=== PATIENT | female | born 1940 | race Caucasian/White ===

== ENCOUNTER 2016-09-08 11:17 | Emergency (ER) | payer MEDICARE, OTHER ==
[2016-09-08] MEDS ORDERED: Aspirin Low Dose CHEW TAB* 81 MG PO ONE (11:27)
--- NOTE | 2016-09-08 11:58 | RAD ---
INDICATION: Chest pain. COMPARISON: Comparison is made with a prior chest x-ray study from September 27, 2004. TECHNIQUE: A portable view of the chest was obtained. FINDINGS: Cardiac and mediastinal contours appear to be within normal limits. The lungs are underinflated and clear. No pleural effusion is seen. IMPRESSION: NO EVIDENCE FOR ACUTE DISEASE.
[2016-09-08 12:28] LABS: Hematocrit 42 % (35-47); Hemoglobin 13.7 g/dl (12.0-16.0); Mean Corpuscular HGB Conc 33 g/dl (31-36); Mean Corpuscular Hemoglobin 29 pg (27-31); Mean Corpuscular Volume 88 fL (80-97); Mean Platelet Volume 10 um3 (7.4-10.4); Red Blood Count 4.74 10^6/ul (4.0-5.4); Red Cell Distribution Width 15 % (10.5-15); White Blood Count 6.9 10^3/ul (3.5-10.8)
[2016-09-08] MEDS ORDERED: Nitroglycerin TAB 0.4 MG* 0.4 MG TAB SL ONE (12:33)
[2016-09-08 12:40] LABS: Albumin 3.8 g/dL (3.2-5.2); EGFR Non-African American 83.2 (>60); Globulin 2.8 g/dL (2-4); Potassium 4.4 mmol/L (3.5-5.0); Total Bilirubin 0.4 mg/dL (0.2-1.0); Total Protein 6.6 g/dL (6.4-8.9)
[2016-09-08] MEDS ORDERED: Iohexol 350* (CONTRAST) 500 ML MDV IV ONE (12:59)
--- NOTE | 2016-09-08 14:09 | RAD ---
INDICATION: Chest and back pain evaluate for aortic dissection. COMPARISON: Comparison is made with a prior CT of the abdomen and pelvis from January 05, 2008 and a prior chest x-ray study from September 08, 2016. TECHNIQUE: A CT angiogram of the chest, abdomen and pelvis was performed with intravenous contrast following intravenous injection of 100 ml of Omnipaque 350 nonionic contrast. Contiguous axial sections were obtained from the lung apices through the symphysis pubis. Images were reconstructed in the coronal and sagittal planes and in a 3-D volume rendered reformatted. FINDINGS: CT ANGIOGRAM OF THE CHEST: There is relatively homogeneous opacification of the pulmonary arteries. No intraluminal filling defect or pulmonary embolism is seen. The heart is within normal limits in size. No pericardial effusion is present. The thoracic aorta is normal in caliber and demonstrates homogeneous contrast opacification without evidence for dissection. There are mildly prominent pretracheal and precarinal lymph nodes measuring up to 1 cm in transverse dimension. There is also a slightly enlarged right hilar lymph node measuring 1.2 cm in transverse dimension. The lungs are clear. No pleural effusion is seen. CT ANGIOGRAM OF THE ABDOMEN AND PELVIS: The abdominal aorta is normal in caliber without hemodynamically significant stenosis. There is moderate calcific plaque at the origin of the celiac artery without evidence for hemodynamically significant stenosis. The superior mesenteric and inferior mesenteric arteries appear widely patent. There are single bilateral renal arteries. The right renal artery appears widely patent. There is moderate calcific plaque at the origin of the left renal artery without evidence for hemodynamically significant stenosis. The liver and spleen are normal in size without significant focal abnormality. There is thickening of the gallbladder wall. No calcified gallstones are seen. The pancreas appears to be within normal limits in size. The kidneys and adrenal glands are normal in size. No hydronephrosis is seen. No significant focal renal abnormality is seen. No significant enlarged retroperitoneal lymph nodes are seen. 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 The stomach, small and large bowel appear nondistended. The appendix appears to be within normal limits. There is no evidence for diverticulitis or colitis. There is moderate to severe sigmoid diverticulosis. There is a small umbilical hernia containing fat. The patient is status post hysterectomy. No free intraperitoneal air or fluid is seen. There is grade 1 anterior spondylolisthesis at the L4-L5 level. No significant focal osseous abnormality is seen. IMPRESSION: 1. NO EVIDENCE FOR AORTIC DISSECTION OR PULMONARY EMBOLISM. 2. GALLBLADDER WALL THICKENING. RECOMMEND FURTHER EVALUATION WITH A RIGHT UPPER QUADRANT ULTRASOUND. 3. MILDLY PROMINENT MEDIASTINAL AND RIGHT HILAR LYMPH NODES.
[2016-09-08 15:39] LABS: Urine Bacteria Absent (Absent); Urine Bilirubin Negative (Negative); Urine Glucose Negative (Negative); Urine Nitrite Negative (Negative)
--- NOTE | 2016-09-08 15:57 | RAD ---
INDICATION: Abnormal CT findings. COMPARISON: Comparison is made with a prior CT angiogram of the chest, abdomen and pelvis of the same day. TECHNIQUE: Multiple real-time images of the right upper quadrant were obtained. FINDINGS: The gallbladder is contracted. There are multiple gallstones present. The gallbladder wall is mildly thickened likely due to the due to the contracted state. No pericholecystic fluid or positive sonographic Monahan sign is present. No intra or extrahepatic ductal distention is present. The common bile duct measured 4.4 cm in diameter. The liver is normal in size and increased in echogenicity most consistent with fatty infiltration. No significant focal abnormality is seen. The pancreas is obscured by overlying bowel gas. The right kidney is normal in size without evidence for hydronephrosis. IMPRESSION: CHOLELITHIASIS WITHOUT EVIDENCE FOR ACUTE CHOLECYSTITIS.
[2016-09-08 16:43] VITALS: BP 142/55
--- NOTE | 2016-09-08 17:08 | PN ---
Progress Note - Progress Note Note: discussed possible admission of pt with Dr. Charlton at approx 16:30. Pt has had 2 troponins that are negative and no dynamic changes on EKG. She is CP free. Unfortunately there is no stress test availability at [facility] during the weekend. Dr. Charlton will check 3rd troponin before the decision to admit this pt is made.
--- NOTE | 2016-09-09 14:31 | ED ---
Neptali Mariee SooYoung, scribed for Cruz Charlton MD on 09/08/16 at 1222 . HPI Chest Pain - HPI Summary HPI Summary: A 76 y/o F presents to ED with c/o acute CP radiating to back shoulders onset this AM after breakfast. Pain is described as dull and achy. Associated sx: malaise. Denies dyspnea. She does experience SOB with exertion. Pt has a baseline unproductive cough that she's had for years. She says she feels a bit better currently. Pert PMHx: asthma, uses an inhaler, takes Singular. PCP is Dr. Saeed. - History of Current Complaint Chief Complaint: EDChestWallPain Time Seen by Provider: 09/08/16 11:26 Hx Obtained From: Patient, Family/Outpatient Dietitian Onset/Duration: Started Hours Ago, Still Present - mildly Timing: Constant Initial Severity: Moderate Current Severity: Mild Pain Intensity: 3 Pain Scale Used: 0-10 Numeric Chest Pain Location: Mid Sternal Chest Pain Radiates: Yes Chest Pain Radiates To:: Shoulder - top of shoulder Character: Dull/Aching - Allergy/Home Medications Allergies/Adverse Reactions: Allergies Allergy/AdvReac Type Severity Reaction Status Date / Time Codeine Allergy Mild N/V Verified 08/06/13 19:27 PMH/Surg Hx/FS Hx/Imm Hx Previously Healthy: No Endocrine/Hematology History: Denies: Hx Diabetes Respiratory History: Reports: Hx Asthma - Surgical History Surgery Procedure, Year, and Place: HYSTERECTOMY Infectious Disease History: No Infectious Disease History: Denies: Traveled Outside the [place] in Last 30 Days - Family History Known Family History: Negative: Cardiac Disease - Social History Occupation: Employed Full-time Lives: With Family Alcohol Use: Weekly Hx Substance Use: No Substance Use Type: Reports: None Hx Tobacco Use: No Smoking Status (MU): Never Smoked Tobacco Have You Smoked in the Last Year: No Review of Systems Negative: Fever, Chills Negative: Erythema Negative: Sore Throat Positive: Chest Pain Negative: Shortness Of Breath, Cough Negative: Abdominal Pain, Vomiting, Nausea Negative: dysuria, hematuria Negative: Myalgia, Edema Negative: Rash Neurological: Other - neg: dizziness; pos: general malaise All Other Systems Reviewed And Are Negative: Yes Physical Exam - Summary Physical Exam Summary: Constitutional: Well-developed, Well-nourished, Alert. (-) Distressed Skin: Warm, Dry HENT: Normocephalic; Atraumatic Eyes: Conjunctiva normal Neck: Musculoskeletal ROM normal neck. (-) JVD, (-) Stridor, (-) Tracheal deviation Cardio: Rhythm regular, rate normal, Heart sounds normal; Intact distal pulses; The pedal pulses are 2+ and symmetric. Radial pulses are 2+ and symmetric. (-) Murmur Pulmonary/Chest wall: Effort normal. (-) Respiratory distress, (-) Wheezes, (-) Rales Abd: Soft, (-) Tenderness, (-) Distension, (-) Guarding, (-) Rebound Musculoskeletal: (-) Edema Lymph: (-) Cervical adenopathy Neuro: Alert, Oriented x3 Psych: Mood and affect Normal Triage Information Reviewed: Yes Vital Signs On Initial Exam: Initial Vitals Temp Pulse Resp BP Pulse Ox 98.6 F 62 18 155/78 98 09/08/16 11:18 09/08/16 11:18 09/08/16 11:18 09/08/16 11:18 09/08/16 11:18 Vital Signs Reviewed: Yes Diagnostics - Vital Signs Vital Signs Temp Pulse Resp BP Pulse Ox 09/08/16 11:38 62 96 09/08/16 11:36 110/86 09/08/16 11:35 98.4 F 59 16 110/86 98 09/08/16 11:18 98.6 F 62 18 155/78 98 - Laboratory Result Diagrams: 09/08/16 12:15 09/08/16 12:15 Lab Statement: Any lab studies that have been ordered have been reviewed, and results considered in the medical decision making process. - Radiology CXR Xray Interpretation: No Acute Changes - IMPRESSION: No evidence for acute findings. Radiology Interpretation Completed By: Radiologist - CT C/A/P CT CT Interpretation: Positive (See Comments) - IMPRESSION: 1. NO EVIDENCE FOR AORTIC DISSECTION OR PULMONARY EMBOLISM. 2. GALLBLADDER WALL THICKENING. RECOMMEND FURTHER EVALUATION WITH A RIGHT UPPER QUADRANT ULTRASOUND. 3. MILDLY PROMINENT MEDIASTINAL AND RIGHT HILAR LYMPH NODES. CT Interpretation Completed By: Radiologist - Ultrasound No standard instances Ultrasound Interpretation: Positive (See Comments) - IMPRESSION: CHOLELITHIASIS WITHOUT EVIDENCE FOR ACUTE CHOLECYSTITIS. Ultrasound Interpretation Completed By: Radiologist - EKG 1 EKG Interpretation: no STEMI 2 Cardiac Rate: Bradycardia - 56 BPM EKG Rhythm: Sinus Bradycardia EKG Interpretation: NO STEMI Re-Evaluation - Re-Evaluation 1 Re-Evaluation Time: 16:12 Change: Improved Comment: Discussing results with pt, plan of action. CP relieved with nitro. 2 Re-Evaluation Time: 16:59 Change: Improved Comment: Discussing plan of action with pt and family. Currently pain free. Will get third trop, EKG. Chest Pain Course/Dx - Course Course Of Treatment: Pt is an active 76 y/o F presenting with acute CP radiating to back shoulders onset this AM after breakfast. Pain is described as dull and achy. Associated sx: malaise. Denies dyspnea. Pert PMHx: asthma, uses an inhaler, takes Singular. PCP is Dr. Saeed. Pt given fluids, nitro and aspirin in ED. CXR was negative. 1st trop was neg. 2nd Trop was 0.01. C/A/P CTA shows "1. NO EVIDENCE FOR AORTIC DISSECTION OR PULMONARY EMBOLISM. 2. GALLBLADDER WALL THICKENING. RECOMMEND FURTHER EVALUATION WITH A RUQ ULTRASOUND. 3. MILDLY PROMINENT MEDIASTINAL AND RIGHT HILAR LYMPH NODES." Gallbladder U/S shows "CHOLELITHIASIS WITHOUT EVIDENCE FOR ACUTE CHOLECYSTITIS. ". Multiple consults with hospitalists, discussed admission. EKG unremarkable, trop negative, pt is currently pain free. Pain possibly due to gallstones. Stress test unavailable on weekends. Will get third trop now. 3rd trop is negative. Pt is CP free. Will D/C home, f/u with PCP and Dr. Lopez, cardio, on Saturday. Told to return to ED if sx worsen or she has concerns. Pt voiced understanding. - Diagnoses Provider Diagnoses: Chest pain, unspecified, Gallstones - Provider Notifications Discussed Care Of Patient With: 161: Dr. Sams, hospitalist: will observe/ admit. 1655: Dr Sams: discussed admission. EKG unremarkable, trop negative, pt is currently pain free. Pain possibly due to gallstones. Stress test unavailable on weekends. Will get third trop now. Time Discussed With Above Provider: 16:18 Instructed by Provider To: Admit As Inpatient Discharge - Discharge Plan Condition: Stable Disposition: HOME The documentation as recorded by the Neptali ramírez SooYoung accurately reflects the service I personally performed and the decisions made by me, Cruz Charlton MD.
== END 2016-09-08 18:49 | disposition home or self-care (01) ==
LOC: ED 11:17 → MEDTELE 16:22 → UNDOADMOB 16:22
DX: R07.9 Chest pain, unspecified (principal); M54.9 Dorsalgia, unspecified; K80.80 Other cholelithiasis without obstruction
CPT/HCPCS: 36415; 71010; 71275; 74174; 76705; 80053; 81003; 81015; 83605; 84484; 85025; 87086; 93005; 99283; A9270-GY; Q9967

== ENCOUNTER 2017-08-16 20:58 | Emergency (ER) | payer MEDICARE, OTHER ==
[2017-08-16] MEDS ORDERED: Ketorolac INJ* 30 MG/ML 1 ML VIAL IM ONE (22:35)
[2017-08-16 23:27] VITALS: BP 155/77
--- NOTE | 2017-08-17 08:27 | RAD ---
Indication: Anterior leg pain. 2 views of the lower leg demonstrates no definite fracture. There is cortical thickening of the fibula. No fracture is identified. IMPRESSION: Cortical thickening of the fibula without definite fracture.
--- NOTE | 2017-08-17 20:28 | ED ---
Alonzo Mariee Nilda, scribed for Jeremías Cohen MD on 08/16/17 at 2230 . Lower Extremity - HPI Summary HPI Summary: This patient is a 77 year old F presenting to [facility] with a chief complaint of intermittent sharp anterior right flores pain (lasting seconds) that began yesterday. The patient rates the pain 9/10 in severity. Symptoms aggravated by ambulation and alleviated by nothing including Aleve taken earlier this afternoon. Pt states she is able to bear weight. Patient reports RLE achiness. Patient denies injury and calf pain. Pt has had previous similar symptoms but tonight is different in that pain "wont go away." NKDA except codeine averse ( causes nausea). No PMHx DM and DVT. - History of Current Complaint Chief Complaint: EDExtremityLower Stated Complaint: RT FRONT LEG PAIN Time Seen by Provider: 08/16/17 22:15 Hx Obtained From: Patient Mechanism Of Injury: Unknown Onset of Pain: Days Onset/Duration: Days Severity Currently: Severe Pain Intensity: 9 Pain Scale Used: 0-10 Numeric Timing: Intermittent, Lasting Seconds Location: Is Discrete @ - right anterior flores Character Of Pain: Sharp Aggravating Factor(s): Ambulation Alleviating Factor(s): Nothing Able to Bear Weight: Yes - Allergies/Home Medications Allergies/Adverse Reactions: Allergies Allergy/AdvReac Type Severity Reaction Status Date / Time codeine Allergy Nausea And Verified 08/16/17 21:16 Vomiting PMH/Surg Hx/FS Hx/Imm Hx Endocrine/Hematology History: Denies: Hx Diabetes Cardiovascular History: Denies: Hx Deep Vein Thrombosis Respiratory History: Reports: Hx Asthma - Surgical History Surgery Procedure, Year, and Place: HYSTERECTOMY Infectious Disease History: No Infectious Disease History: Denies: Traveled Outside the [place] in Last 30 Days - Family History Known Family History: Negative: Cardiac Disease - Social History Alcohol Use: Weekly Hx Substance Use: No Substance Use Type: Reports: None Hx Tobacco Use: No Smoking Status (MU): Never Smoked Tobacco Have You Smoked in the Last Year: No Review of Systems Negative: Shortness Of Breath Positive: Other - right flores pain and RLE achiness; negative calf pain, injury All Other Systems Reviewed And Are Negative: Yes Physical Exam - Summary Physical Exam Summary: GENERAL: Patient is a well developed and nourished F who is lying comfortable in the stretcher. Patient is not in any acute respiratory distress. HEAD AND FACE: Normocephalic EYES: PERRLA, EOMI x 2. EARS: Hearing grossly intact. MOUTH: Oropharynx within normal limits. NECK: Supple, trachea is midline, no adenopathy, no JVD, no carotid bruit. CHEST: Symmetric, no tenderness at palpation LUNGS: Clear to auscultation bilaterally. No wheezing or crackles. CVS: Regular rate and rhythm, S1 and S2 present, no murmurs or gallops appreciated. ABDOMEN: Soft, non-tender. Bowel sounds are normal. No abdominal abnormal pulsations. EXTREMITIES: Full ROM in all major joints, no edema, no cyanosis or clubbing. Distal anterior right flores tender to palpation. No tenderness in calf area. NEURO: Alert and oriented x 3. No acute neurological deficits. Speech is normal and follows commands. SKIN: Dry and warm Triage Information Reviewed: Yes Vital Signs On Initial Exam: Initial Vitals Temp Pulse Resp BP Pulse Ox 98.5 F 70 18 141/78 97 08/16/17 21:13 08/16/17 21:13 08/16/17 21:13 08/16/17 21:13 08/16/17 21:13 Vital Signs Reviewed: Yes Diagnostics - Vital Signs Vital Signs Temp Pulse Resp BP Pulse Ox 08/16/17 21:13 98.5 F 70 18 141/78 97 - Laboratory Lab Statement: Any lab studies that have been ordered have been reviewed, and results considered in the medical decision making process. - Radiology Right Leg XR Radiology Interpretation Completed By: ED Physician - Flores XR reveals no fracture. Lower Extremity Course/Dx - Course Assessment/Plan: Pt is 77 y/o F who presents with pain to right anterior flores. No tenderness to palpation in calf area. XR was done which was unremarkable. Pt was given shot of Toradol and reports feeling a lot better. Results of XR discussed with pt. Pt safe for D/C with f/u with PCP and given strict return precautions. - Diagnoses Provider Diagnoses: Right leg pain Discharge - Sign-Out/Discharge Documenting (check all that apply): Discharge - home - Discharge Plan Condition: Stable Disposition: HOME Patient Education Materials: Leg Pain (ED) Referrals: Richard Saeed MD [Primary Care Provider] - 2 Days Additional Instructions: RETURN TO THE EMERGENCY DEPARTMENT FOR CHANGING OR WORSENING SYMPTOMS. The documentation as recorded by the Alonzo ramírez Nilda accurately reflects the service I personally performed and the decisions made by me, Jeremías Cohen MD.
== END 2017-08-16 23:27 | disposition home or self-care (01) ==
LOC: ED 20:58
DX: M79.661 Pain in right lower leg (principal); J45.909 Unspecified asthma, uncomplicated; Z88.5 Allergy status to narcotic agent
CPT/HCPCS: 96372; 99281; J1885

== ENCOUNTER 2018-08-25 20:31 | Emergency (ER) | payer MEDICARE, OTHER ==
[2018-08-25] MEDS ORDERED: Ibuprofen TAB* 600 MG PO ONE (21:32)
--- NOTE | 2018-08-25 21:37 | ED ---
Throat Pain/Nasal Congestion - HPI Summary HPI Summary: Patient complains of pain to right jaw below right ear 2 days, sometimes worse with movement. Pain is intermittent. Patient states history of same pain before. Denies trauma, fever, cough, sore throat, ear pain, LINK, neck stiffness , CP, SOB, N/V/V abdominal pain, change in urine, change in BM. Patient tolerating by mouth fluids and food. Medical history is asthma. Denies taking medication for pain. - History of Current Complaint Chief Complaint: EDGeneral Time Seen by Provider: 08/25/18 21:07 Hx Obtained From: Patient Onset/Duration: Gradual Onset, Lasting Days Severity: Moderate Associated Signs And Symptoms: Positive: Negative Cough: None - Allergies/Home Medications Allergies/Adverse Reactions: Allergies Allergy/AdvReac Type Severity Reaction Status Date / Time codeine Allergy Nausea And Verified 08/25/18 20:49 Vomiting PMH/Surg Hx/FS Hx/Imm Hx Endocrine/Hematology History: Denies: Hx Diabetes Cardiovascular History: Denies: Hx Deep Vein Thrombosis Respiratory History: Reports: Hx Asthma History: Denies: Hx Dialysis Sensory History: Denies: Hx Eye Prosthesis Opthamlomology History: Denies: Hx Legally Blind EENT History: Denies: Hx Deafness Neurological History: Denies: Hx Dementia Psychiatric History: Denies: Hx Autism - Surgical History Surgery Procedure, Year, and Place: HYSTERECTOMY Infectious Disease History: No Infectious Disease History: Denies: Traveled Outside the [place] in Last 30 Days - Family History Known Family History: Negative: Cardiac Disease - Social History Alcohol Use: Weekly Hx Substance Use: No Substance Use Type: Reports: None Hx Tobacco Use: No Smoking Status (MU): Never Smoked Tobacco Have You Smoked in the Last Year: No Review of Systems Constitutional: Negative Eyes: Negative Positive: Other Cardiovascular: Negative Respiratory: Negative Gastrointestinal: Negative Genitourinary: Negative Musculoskeletal: Negative Skin: Negative Neurological: Negative Psychological: Normal All Other Systems Reviewed And Are Negative: Yes Physical Exam - Summary Physical Exam Summary: No facial swelling, ecchymosis, erythema, deformity, swelling noted to mouth, face. ENT exam unremarkable. Tenderness to palpation of TMJ. Full range of motion of mouth with some mild pain in right TMJ. No rash noted. No tenderness to palpation over right zoroastrian. Triage Information Reviewed: Yes Vital Signs On Initial Exam: Initial Vitals Temp Pulse Resp BP Pulse Ox 98.1 F 66 16 139/65 95 08/25/18 20:47 08/25/18 20:47 08/25/18 20:47 08/25/18 20:47 08/25/18 20:47 Vital Signs Reviewed: Yes Appearance: Positive: Well-Appearing Skin: Positive: Warm Head/Face: Positive: Normal Head/Face Inspection Eyes: Positive: Normal ENT: Positive: Normal ENT inspection Neck: Positive: Supple Respiratory/Lung Sounds: Positive: Clear to Auscultation Cardiovascular: Positive: Normal Abdomen Description: Positive: Nontender Musculoskeletal: Positive: Normal Neurological: Positive: Normal Psychiatric: Positive: Normal AVPU Assessment: Alert - Leyda Coma Scale Best Eye Response: 4 - Spontaneous Best Motor Response: 6 - Obeys Commands Best Verbal Response: 5 - Oriented Coma Scale Total: 15 Diagnostics - Vital Signs Vital Signs Temp Pulse Resp BP Pulse Ox 08/25/18 20:47 98.1 F 66 16 139/65 95 - Laboratory Lab Statement: Any lab studies that have been ordered have been reviewed, and results considered in the medical decision making process. EENT Course/Dx - Course Course Of Treatment: Patient complains of pain to right jaw below right ear 2 days, sometimes worse with movement. Pain is intermittent. Patient states history of same pain before. Denies trauma, fever, cough, sore throat, ear pain , LINK, neck stiffness, CP, SOB, N/V/V abdominal pain, change in urine, change in BM. Patient tolerating by mouth fluids and food. Medical history is asthma. Denies taking medication for pain. Physical exam:No facial swelling, ecchymosis , erythema, deformity, swelling noted to mouth, face. ENT exam unremarkable. Tenderness to palpation of TMJ. Full range of motion of mouth with some mild pain in right TMJ. No rash noted. No tenderness to palpation over right zoroastrian. Vital signs within normal limits. Patient advised to try ibuprofen and warm compresses and follow up with ENT if symptoms persist. Patient understands and approves of plan. - Diagnoses Provider Diagnoses: Jaw pain Discharge - Sign-Out/Discharge Documenting (check all that apply): Patient Departure Patient Received Moderate/Deep Sedation with Procedure: No - Discharge Plan Condition: Stable Disposition: HOME Prescriptions: Cyclobenzaprine TAB* [Flexeril 10 MG TAB*] 10 mg PO TID PRN 3 Days #10 tab PRN Reason: Pain Oxycodone HCl 5 mg PO Q8H 2 Days #6 tablet MDD 3 tabs Patient Education Materials: Temporomandibular Disorder (ED) Referrals: Richard Saeed MD [Primary Care Provider] - Chris Mcrae MD [Medical Doctor] - Additional Instructions: Alternate ibuprofen 600 mg with Tylenol 650 mg every 3 hours for jaw pain. Take Flexeril as directed for possible muscle spasm of jaw. Take oxycodone as directed for breakthrough pain. If symptoms persist follow-up with ear nose and throat Dr. Mcrae. Return to the ED for any new or worsening symptoms. - Billing Disposition and Condition Condition: STABLE Disposition: Home
[2018-08-25 21:53] VITALS: BP 0/0
== END 2018-08-25 21:45 | disposition home or self-care (01) ==
LOC: ED 20:31
DX: R68.84 Jaw pain (principal); Z88.5 Allergy status to narcotic agent
CPT/HCPCS: 99282; A9270-GY

== ENCOUNTER 2019-04-25 22:23 | Emergency (ER) | payer MEDICARE ==
--- NOTE | 2019-04-25 22:47 | ED ---
Adult Trauma - HPI Summary HPI Summary: 78 year old female presents after a fall today. States that she ended up tripping and falling on her left knee and hip. She also landed on her right outstretched hand. She states that she is right hand. She denies any previous fracture to the area. She was able to ambulate. Has abrasions to the left knee. She denies any head injury or LOC. no neck pain. no other injury. fall was a mechanical fall. is not on blood thinners. Has a history of asthma. - History of Current Complaint Chief Complaint: EDFall Stated Complaint: FALL PER PT Time Seen by Provider: 04/25/19 22:41 Pain Intensity: 6 - Allergy/Home Medications Allergies/Adverse Reactions: Allergies Allergy/AdvReac Type Severity Reaction Status Date / Time codeine Allergy Nausea And Verified 04/25/19 22:36 Vomiting PMH/Surg Hx/FS Hx/Imm Hx Endocrine/Hematology History: Denies: Hx Diabetes Cardiovascular History: Denies: Hx Deep Vein Thrombosis Respiratory History: Reports: Hx Asthma History: Denies: Hx Dialysis Sensory History: Denies: Hx Eye Prosthesis, Hx Legally Blind, Hx Deafness Opthamlomology History: Denies: Hx Eye Prosthesis, Hx Legally Blind Neurological History: Denies: Hx Dementia Psychiatric History: Denies: Hx Autism - Surgical History Surgery Procedure, Year, and Place: HYSTERECTOMY Infectious Disease History: No Infectious Disease History: Denies: Traveled Outside the [place] in Last 30 Days - Family History Known Family History: Negative: Cardiac Disease - Social History Alcohol Use: Occasionally Hx Substance Use: No Substance Use Type: Reports: None Hx Tobacco Use: No Smoking Status (MU): Never Smoked Tobacco Have You Smoked in the Last Year: No Review of Systems Negative: Fever Negative: Chest Pain Negative: Shortness Of Breath Positive: Myalgia - right hand, left hip and knee All Other Systems Reviewed And Are Negative: Yes Physical Exam Triage Information Reviewed: Yes Vital Signs On Initial Exam: Initial Vitals Temp Pulse Resp BP Pulse Ox 97.7 F 67 16 149/75 97 04/25/19 22:33 04/25/19 22:33 04/25/19 22:33 04/25/19 22:33 04/25/19 22:33 Vital Signs Reviewed: Yes Appearance: Positive: Well-Appearing Skin: Positive: Warm, Dry Head/Face: Positive: Normal Head/Face Inspection Eyes: Positive: Normal, Conjunctiva Clear ENT: Positive: Pharynx normal Neck: Positive: Other: - nontender neck Respiratory/Lung Sounds: Positive: Clear to Auscultation, Breath Sounds Present Cardiovascular: Positive: Normal, RRR Musculoskeletal: Positive: Strength/ROM Intact - left hip and knee, Limited @ - right wrist with pain, Other - tenderness right snuff box and radial aspect of right wrist, swelling noted to dorsum of right hand over radial aspect, good pulses, abrasion noted to left knee, tenderness to left hip and medial aspect of left knee Procedures - Sedation Patient Received Moderate/Deep Sedation with Procedure: No - Splinting right wrist Location: right wrist Hand-Made Type: orthoglass Splint: sugar-tong Pre-Proc Neuro Vasc Exam: normal Post-Proc Neuro Vasc Exam: normal Splint Applied by Provider: Cathleen Shetty - Vital Signs Vital Signs Temp Pulse Resp BP Pulse Ox 04/25/19 22:33 97.7 F 67 16 149/75 97 - Laboratory Lab Statement: Any lab studies that have been ordered have been reviewed, and results considered in the medical decision making process. - Radiology wrist Radiology Interpretation Completed By: ED Physician Summary of Radiographic Findings: radius and ulna fracture hip Radiology Interpretation Completed By: ED Physician Summary of Radiographic Findings: no fracture knee Radiology Interpretation Completed By: ED Physician Summary of Radiographic Findings: no fracture Adult Trauma Course/Dx - Course Course Of Treatment: 78 year old female presents after a fall today. States that she ended up tripping and falling on her left knee and hip. She also landed on her right outstretched hand. She states that she is right hand. She denies any previous fracture to the area. She was able to ambulate. Has abrasions to the left knee. She denies any head injury or LOC. no neck pain. no other injury. fall was a mechanical fall. is not on blood thinners. Has a history of asthma. On exam tenderness over right wrist and hand over ulnar area. pos snuff box tenderness. tenderness medial aspect of left knee, full ROM knee and hip. able to place weight on left hip. neurovascular intact. xray shows no fracture of knee and hip. hand xray shows radius and ulnar fracture distal, placed in sugar tong splint. told to ice and elevate. told follow up with ortho. patient understand and agrees with plan. - Diagnoses Differential Diagnosis/HQI/PQRI: Positive: Contusion(s), Fracture, Sprain Provider Diagnoses: Left knee pain, Left hip pain, Right wrist fracture, Fall Discharge ED - Sign-Out/Discharge Documenting (check all that apply): Patient Departure - Discharge Plan Condition: Good Disposition: HOME Patient Education Materials: Wrist Fracture in Adults (ED) Referrals: Richard Saeed MD [Primary Care Provider] - Sary Zambrano MD [Medical Doctor] - Additional Instructions: Keep splint on area and keep dry follow up with ortho Use tyenlol for pain every 6 hours Ice, elevate Return to ED if develop any new or worsening symptoms - Billing Disposition and Condition Condition: GOOD Disposition: Home
[2019-04-26 00:34] VITALS: BP 124/65
== END 2019-04-26 00:34 | disposition home or self-care (01) ==
LOC: ED 22:23
DX: S52.501A Unspecified fracture of the lower end of right radius, initial encounter for closed fracture (principal); S52.611A Displaced fracture of right ulna styloid process, initial encounter for closed fracture; M25.562 Pain in left knee; M25.552 Pain in left hip; W01.0XXA Fall on same level from slipping, tripping and stumbling without subsequent striking against object, initial encounter; Y92.9 Unspecified place or not applicable; J45.909 Unspecified asthma, uncomplicated; Z90.710 Acquired absence of both cervix and uterus; Z88.5 Allergy status to narcotic agent
CPT/HCPCS: 99282